=== PATIENT | female | born 1935 | race Caucasian/White ===

== ENCOUNTER 2016-12-08 15:28 | Emergency (ER) | payer OTHER ==
[~2016-12-08] VITALS: Ht 162.6 cm; Wt 63.5 kg
[2016-12-08] MEDS ORDERED: MEMA10TA PO ×2 (15:45)
[2016-12-08] MEDS ORDERED: ISOSORBIDE PO (15:45)
[2016-12-08] MEDS ORDERED: LEVO137T2 PO (15:45)
[2016-12-08] MEDS ORDERED: IBUP-1953 PO (15:45)
[2016-12-08] MEDS ORDERED: METF500T4 PO (15:45)
[2016-12-08] MEDS ORDERED: LOVA40TA2 PO (15:45)
[2016-12-08] MEDS ORDERED: METF10002 PO (15:45)
[2016-12-08] MEDS ORDERED: AMLO5TAB2 PO (15:45)
--- NOTE | 2016-12-08 16:24 | NUR ---
Pt evaluated by MD for L breast lumps; vss, nad noted; son w/ pt.
--- NOTE | 2016-12-08 16:37 | NUR ---
Patient discharged home in stable conditon. Written and verbal after care instructions given. Patient verbalizes understanding of instructions.
[2016-12-08 16:39] VITALS: BP 102/48
== END 2016-12-08 16:39 | disposition home or self-care (01) ==
LOC: ER 15:29
DX: N63 Unspecified lump in breast (principal); I10 Essential (primary) hypertension; E11.9 Type 2 diabetes mellitus without complications; E03.9 Hypothyroidism, unspecified
CPT/HCPCS: 99281; A4663

== ENCOUNTER 2017-05-20 12:26 | Emergency (ER) | payer OTHER, MEDICARE ==
[~2017-05-20] VITALS: Ht 157.5 cm; Wt 64.4 kg
[~2017-05-20 12:26] MED LIST: AMLO5TAB2 PO; IBUP-1953 PO; ISOSORBIDE PO; LEVO137T2 PO; LOVA40TA2 PO; MEMA10TA PO; METF10002 PO; METF500T4 PO
--- NOTE | 2017-05-20 13:09 | NUR ---
is at bedside doing the MSE. Patient's son is here now.
[2017-05-20 13:34] LABS: BASOPHILS % (AUTO) 0.2 % (0.0-2.0); EOSINOPHILS # (AUTO) 0.2 K/uL (0.0-0.7); HEMATOCRIT 37.4 % (37-47); HEMOGLOBIN 12.5 G/DL (12.0-16.0); LYMPHOCYTES # (AUTO) 2.2 K/UL (0.8-4.8); LYMPHOCYTES % (AUTO) 27.2 % (20.5-51.5); MEAN CORPUSCULAR HEMOGLOBIN 31.5 UUG (27.0-31.0); MEAN CORPUSCULAR HGB CONC 33 g/dL (32.0-37.0); MEAN CORPUSCULAR VOLUME 94.5 FL (81.0-99.0); MONOCYTES # (AUTO) 0.3 K/UL (0.1-1.30); MONOCYTES % (AUTO) 3.3 % (0.0-11.0); NEUTROPHILS # (AUTO) 5.4 K/UL (1.8-8.9); NEUTROPHILS % (AUTO) 67.3 % (38.5-71.5); PLATELET COUNT (AUTO) 200 K/UL (150-450); RED BLOOD CELL COUNT(AUTO) 3.96 MIL/UL (4.2-5.4); WHITE BLOOD COUNT (AUTO) 8.1 K/UL (4.0-11.2)
[2017-05-20 13:39] LABS: CARBON DIOXIDE 26 mmol/L (21-32); CHLORIDE 106 mmol/L (98-107); CREATININE 0.9 mg/dL (0.6-1.3); GLUCOSE 110 mg/dL (74-106); POTASSIUM 4.3 mmol/L (3.5-5.1); UREA NITROGEN, BLOOD 26 mg/dL (7-18)
[2017-05-20 13:46] LABS: ALANINE AMINOTRANSFERASE 19 U/L (14-59); ALKALINE PHOSPHATASE 85 U/L (50-136); ASPARTATE AMINOTRANSFERASE 17 U/L (15-37); BILIRUBIN,TOTAL 0.2 mg/dL (0.2-1.0); CREATINE KINASE, TOTAL 36 U/L (26-192); TOTAL PROTEIN, SERUM 7.1 g/dL (6.4-8.2)
--- NOTE | 2017-05-20 14:48 | NUR ---
Patient is resting comfortably in bed with eyes tracking
[2017-05-20 15:52] LABS: *BILIRUBIN,URIN NEGATIVE (NEGATIVE); *BLOOD, URINE 1+ (NEGATIVE); *CLARITY,URINE CLEAR (CLEAR); *COLOR,URINE YELLOW (YELLOW); *KETONES,URINE NEGATIVE (NEGATIVE); *PROTEIN,URINE NEGATIVE (NEGATIVE); *UROBILINOGEN,URINE 0.2 E.U./dl (NORMAL); LEUKOCYTE ESTERASE ,URINE NEGATIVE (NEGATIVE); NITRITE, URINE NEGATIVE (NEGATIVE); PH,URINE 6.5 (5.0-8.0); UGLUCOSE NEGATIVE (NEGATIVE)
--- NOTE | 2017-05-20 15:52 | NUR ---
No acute change in condition seen, pending urine test results@this time
[2017-05-20 16:05] LABS: MUCUS,URINE MODERATE /LPF (0-FEW); SQUAMOUS EPITHELIAL CELL,UR FEW /HPF (NONE SEEN); WBC,URINE 0-3 /HPF (0-3)
--- NOTE | 2017-05-20 17:03 | NUR ---
Patient discharged to home in stable conditon. Written and verbal after care instructions given to patient's adult son. Patient's son verbalizes understanding of instructions.
== END 2017-05-20 17:05 | disposition home or self-care (01) ==
LOC: ER 12:26
DX: R55 Syncope and collapse (principal); R11.2 Nausea with vomiting, unspecified; E11.9 Type 2 diabetes mellitus without complications; F03.90 Unspecified dementia, unspecified severity, without behavioral disturbance, psychotic disturbance, mood disturbance, and anxiety; I10 Essential (primary) hypertension; I70.0 Atherosclerosis of aorta; Z85.3 Personal history of malignant neoplasm of breast; E03.9 Hypothyroidism, unspecified
CPT/HCPCS: 36415; 70450; 74022; 80053; 81001; 82550; 84484; 85025; 93005; 99285; A4663; C1758; J7040; 70030-TC

== ENCOUNTER 2017-06-17 13:48 | Inpatient (IN) | END 2017-06-19 21:21 | disposition BOARD | DRG 73 | DX: G90.8 Other disorders of autonomic nervous system (principal); G93.41 Metabolic encephalopathy; J84.9 Interstitial pulmonary disease, unspecified; E11.9 Type 2 diabetes mellitus without complications; C50.919 Malignant neoplasm of unspecified site of unspecified female breast; E03.9 Hypothyroidism, unspecified; Z79.84 Long term (current) use of oral hypoglycemic drugs; G30.9 Alzheimer's disease, unspecified; F02.80 Dementia in other diseases classified elsewhere, unspecified severity, without behavioral disturbance, psychotic disturbance, mood disturbance, and anxiety; E78.5 Hyperlipidemia, unspecified; I25.10 Atherosclerotic heart disease of native coronary artery without angina pectoris; I11.9 Hypertensive heart disease without heart failure ==

== ENCOUNTER 2019-10-02 12:55 | Inpatient (IN) | payer OTHER ==
[~2019-10-02] VITALS: Ht 165.1 cm; Wt 68.2 kg
[2019-10-02 13:42] LABS: CARBON DIOXIDE 17 mmol/L (21-32); CHLORIDE 95 mmol/L (98-107); CREATININE 7.2 mg/dL (0.6-1.3); GLUCOSE 228 mg/dL (74-106)
[2019-10-02 13:43] LABS: UREA NITROGEN, BLOOD 81 mg/dL (7-18)
[2019-10-02] MEDS ORDERED: FUROSEMIDE 20 MG/2 ML VIAL IVP ONE (13:45)
[2019-10-02] MEDS ORDERED: CALCIUM GLUCONATE IV 1 GM in IV DEXTROSE 5% 50 ML IV ONE ×2 (13:45→14:00)
[2019-10-02] MEDS ORDERED: SODIUM BICARBONATE 8.4% 50 MEQ/50 ML DISP.SYRIN IV ONE ×7 (13:45→17:12)
[2019-10-02] MEDS ORDERED: IV NORMAL SALINE 500 ML BAG IV ONE ×2 (13:45→14:00)
[2019-10-02 13:48] LABS: BASOPHILS % (AUTO) 0.2 % (0.0-2.0); HEMOGLOBIN 12.7 g/dL (10.9-14.3); LYMPHOCYTES # (AUTO) 1.4 K/uL (20.0-40.0); MEAN CORPUSCULAR HEMOGLOBIN 30.4 uug (24.7-32.8); MEAN CORPUSCULAR HGB CONC 33 g/dL (32.3-35.6); MEAN CORPUSCULAR VOLUME 93.6 fL (75.5-95.3); MONOCYTES # (AUTO) 0.5 K/uL (2.0-10.0); MONOCYTES % (AUTO) 3.2 % (0.0-11.0); NEUTROPHILS % (AUTO) 88.6 % (38.5-71.5); PLATELET COUNT (AUTO) 277 K/uL (179-408); RED BLOOD CELL COUNT(AUTO) 4.16 MIL/uL (3.63-4.92)
[2019-10-02] MEDS ORDERED: FUROSEMIDE 20 MG/2 ML VIAL ONE ×2 (13:54→15:55)
[2019-10-02 13:55] LABS: ALANINE AMINOTRANSFERASE 13 U/L (14-59); ALKALINE PHOSPHATASE 123 U/L (50-136); ASPARTATE AMINOTRANSFERASE 34 U/L (15-37); BILIRUBIN,TOTAL 0.2 mg/dL (0.2-1.0); CREATINE KINASE, TOTAL 343 U/L (26-192); LACTATE DEHYDROGENASE 282 U/L (81-234); TOTAL PROTEIN, SERUM 7.9 g/dL (6.4-8.2)
[2019-10-02] MEDS ORDERED: CALCIUM GLUCONATE IV 2 GM in IV DEXTROSE 5% 250 ML IV ONE (14:00)
[2019-10-02] MEDS ORDERED: INSULIN REGULAR, HUMAN 300 UNIT/3 ML VIAL IV ONE ×2 (14:00→17:45)
[2019-10-02] MEDS ORDERED: DEXTROSE 50% 50 ML DISP.SYRIN IV ONE (14:00)
[2019-10-02] MEDS ORDERED: DEXTROSE 50% 50 ML DISP.SYRIN ONE (14:05)
[2019-10-02] MEDS ORDERED: INSULIN REGULAR, HUMAN 300 UNIT/3 ML VIAL ONE (14:06)
[2019-10-02 14:31] LABS: *CLARITY,URINE CLOUDY (CLEAR)
[2019-10-02 14:32] LABS: *BILIRUBIN,URIN NEGATIVE (NEGATIVE); *BLOOD, URINE 4+ (NEGATIVE); *COLOR,URINE LIGHT YELLOW (YELLOW); *KETONES,URINE NEGATIVE (NEGATIVE); *UROBILINOGEN,URINE 0.2 E.U./dl (NORMAL); LEUKOCYTE ESTERASE ,URINE 3+ (NEGATIVE); NITRITE, URINE NEGATIVE (NEGATIVE); UGLUCOSE NEGATIVE (NEGATIVE)
[2019-10-02 14:39] LABS: FERRITIN 236 ng/mL (8-252)
[2019-10-02 14:42] LABS: RBC,URINE TNTC /HPF (0-3); WBC,URINE TNTC /HPF (0-3)
[2019-10-02 14:43] LABS: BACTERIA,URINE MANY /HPF (NONE SEEN); SQUAMOUS EPITHELIAL CELL,UR NONE SEEN /HPF (NONE SEEN)
[2019-10-02] MEDS ORDERED: CEFTRIAXONE 2 G in IV DEXTROSE 5% 100 ML IV ONE (14:45)
[2019-10-02] MEDS ORDERED: IV NORMAL SALINE 1000 ML BAG IV ONE (14:45)
[2019-10-02] MEDS ORDERED: CEFTRIAXONE /D5W 50ML IVPB **ER PYXIS IV ONE ×2 (15:13→15:26)
[2019-10-02 15:29] LABS: CARBON DIOXIDE 15 mmol/L (21-32); CHLORIDE 97 mmol/L (98-107); CREATININE 6.8 mg/dL (0.6-1.3); UREA NITROGEN, BLOOD 78 mg/dL (7-18)
[2019-10-02 15:41] LABS: GLUCOSE 324 mg/dL (74-106); POTASSIUM 7.1 mmol/L (3.5-5.1)
[2019-10-02] MEDS ORDERED: FUROSEMIDE 20 MG/2 ML VIAL IV ONE (16:00)
[2019-10-02] MEDS ORDERED: ONDANSETRON 4 MG/2 ML VIAL IV PRN (16:15)
[2019-10-02] MEDS ORDERED: Z GUARD REMEDY PASTE 57 GM TUBE TOP PRN (16:15)
--- NOTE | 2019-10-02 16:48 | NUR ---
JUAREZ RAMIRES ON THE PHONE WITH ERMD
[2019-10-02] MEDS ORDERED: SODIUM POLYSTYRENE SULFONATE ENEMA 30 G/120 ML BOTTLE RC ONE ×2 (17:00→17:13)
[2019-10-02] MEDS ORDERED: AZITHROMYCIN 500MG/ D5W 250ML IVPB **ER PYXIS ONLY IV ONE (17:12)
[2019-10-02 17:21] LABS: ABG BASE EXCESS -10.4 mmol/L; ABG HCO3 16.3 mmol/L; ABG PCO2 38.7 mmHg (35.0-45.0); ABG PH 7.242 (7.350-7.450); ABG PO2 113.1 mmHg (75.0-100.0); ABG SITE RIGHT RADIAL; ABG TOTAL HEMOGLOBIN 12.2 G/dL (12.0-16.0); COHb 0.5 % (0.5-1.5); MetHb 0.4 % (0.0-1.5); O2Hb 97.5 % (94.0-97.0); VENT MODE Nasal Cannula
[2019-10-02] MEDS: AZITHROMYCIN IV 500 MG in IV DEXTROSE 5% 250 ML IV SCH (17:44)
[2019-10-02] MEDS ORDERED: MEMANTINE HCL 10 MG TABLET PO SCH (18:00)
--- NOTE | 2019-10-02 19:11 | NUR ---
report was rivsivan to machinist 2nd shift jason Charles.
--- NOTE | 2019-10-02 19:30 | NUR ---
Report given to CCU nurse. Vital signs stable. Room still not ready yet.
[2019-10-02] MEDS: IV NS 1000 ML 1,000 ML IV PRN (19:51)
[2019-10-02] MEDS: SODIUM BICARBONATE 8.4% 50 MEQ in IV D5 1/2 NS 1000 ML 1,000 ML IV PRN ×2 (20:10→20:57)
[2019-10-02 21:00] VITALS: BP 133/56
--- NOTE | 2019-10-02 21:00 | NUR ---
Received pt via sudeep in CCU 2 with DX: UTI with sepsis, R/O COVID. Pt awake, arousable to name, aphasic and unable to follow commands. Pt on 3L NC with O2 sats up to 97%. SR on monitor. No acute distress noted. Pt came up with Sodium bicarb at 125 cc/hr and NS at 75 cc/hr. F/C in place. Full assessment done. Wound check done. Pt turned and repositioned. Droplet/contact precautions initiated. Continue plan of care.
[2019-10-02] MEDS: CEFEPIME HCL 1 G in IV DEXTROSE 5% 50 ML IV SCH (21:21)
[2019-10-02 22:00] VITALS: BP 107/62
[2019-10-02 23:00] VITALS: BP 99/76
[2019-10-03] VITALS (17 sets, daily range): BP systolic 81–167; BP diastolic 28–113
--- NOTE | 2019-10-03 05:45 | NUR ---
Pt slept intermittently throughout the night. No acute distress noted. Pt tolerating 2L NC with O2 sats up to 96%. ST on monitor. VSS, afebrile. AM care rendered. Q2H repositioning. Heels offloaded. Continuous IVF running. Droplet/contact precautions maintained. Continue plan of care.
[2019-10-03 06:07] LABS: BASOPHILS % (AUTO) 0.2 % (0.0-2.0); HEMATOCRIT 38.3 % (31.2-41.9); HEMOGLOBIN 13.3 g/dL (10.9-14.3); LYMPHOCYTES # (AUTO) 0.8 K/uL (20.0-40.0); LYMPHOCYTES % (AUTO) 6.2 % (20.5-51.5); MEAN CORPUSCULAR HEMOGLOBIN 32.2 uug (24.7-32.8); MEAN CORPUSCULAR HGB CONC 35 g/dL (32.3-35.6); MONOCYTES # (AUTO) 0.2 K/uL (2.0-10.0); MONOCYTES % (AUTO) 1.3 % (0.0-11.0); NEUTROPHILS # (AUTO) 11.7 K/uL (1.8-8.9); NEUTROPHILS % (AUTO) 92.3 % (38.5-71.5); PLATELET COUNT (AUTO) 240 K/uL (179-408); RED BLOOD CELL COUNT(AUTO) 4.12 MIL/uL (3.63-4.92); WHITE BLOOD COUNT (AUTO) 12.7 K/uL (3.8-11.8)
[2019-10-03 06:18] LABS: ALANINE AMINOTRANSFERASE 15 U/L (14-59); ALKALINE PHOSPHATASE 158 U/L (50-136); ASPARTATE AMINOTRANSFERASE 39 U/L (15-37); BILIRUBIN,TOTAL 0.3 mg/dL (0.2-1.0); CARBON DIOXIDE 22 mmol/L (21-32); CHLORIDE 96 mmol/L (98-107); CHOLESTEROL 142 mg/dL (<200); CREATININE 6.5 mg/dL (0.6-1.3); GLUCOSE 140 mg/dL (74-106); HDL CHOLESTEROL 51 mg/dL (40-60); MAGNESIUM 1.5 mg/dL (1.8-2.4); PHOSPHOROUS 5.9 mg/dL (2.5-4.9); TOTAL PROTEIN, SERUM 7.3 g/dL (6.4-8.2); TRIGLYCERIDES 140 MG/DL (30-150)
[2019-10-03 06:22] LABS: UREA NITROGEN, BLOOD 84 mg/dL (7-18)
[2019-10-03] MEDS: SODIUM BICARBONATE 8.4% 50 MEQ in IV D5 1/2 NS 1000 ML 1,000 ML IV PRN (06:29)
[2019-10-03] MEDS: LEVOTHYROXINE SODIUM 137 MCG TABLET PO SCH (07:00)
[2019-10-03] MEDS ORDERED: SODIUM POLYSTYRENE SULFONATE ENEMA 30 G/120 ML BOTTLE RC ONE (08:30)
[2019-10-03] MEDS ORDERED: MEMANTINE HCL 10 MG TABLET PO SCH (09:00)
[2019-10-03] MEDS: MEMANTINE HCL 5 MG TABLET PO SCH ×2 (09:09→17:28)
--- NOTE | 2019-10-03 11:00 | NUR ---
DOCTOR DIAZ AND DR MARTIN IN THE UNIT TO SEE PATIENT AND EVALUATE.
--- NOTE | 2019-10-03 11:22 | NUR ---
DOCTOR YAMILA PHONED FOR UPDATE AND PLAN. WILL INITIATE LASIX 40 MG TO BUMP START KIDNEY FUNCTION. INFORMED THAT DR DIAZ WAS IN THE UNIT AND WANTS TO GIVE MORE FLUIDS. STATED THAT IS FINE. PLAN FOR REPEAT BMP AT 2PM TO MONITOR ELECTROLYTES AND WILL CALL FOR FURTHER ORDERS AT THAT TIME IF NEEDED PER RESULTS. INFORMED THAT KAYEXALATE 30GM GIVEN ALREADY ORDERED THIS MORNING.
[2019-10-03] MEDS ORDERED: FUROSEMIDE 40 MG/4 ML VIAL IV ONE (11:30)
[2019-10-03] MEDS: IV NS 1000 ML 1,000 ML IV PRN (12:20)
[2019-10-03] MEDS ORDERED: MAGNESIUM SULFATE/D5W 100 ML IV SCH (13:00)
[2019-10-03] MEDS ORDERED: CEFTRIAXONE 1 G in IV DEXTROSE 5% 50 ML IV SCH (14:00)
[2019-10-03 14:58] LABS: CARBON DIOXIDE 22 mmol/L (21-32); CHLORIDE 99 mmol/L (98-107); CREATININE 6.8 mg/dL (0.6-1.3); GLUCOSE 204 mg/dL (74-106)
[2019-10-03 15:01] LABS: POTASSIUM 6.6 mmol/L (3.5-5.1); UREA NITROGEN, BLOOD 88 mg/dL (7-18)
--- NOTE | 2019-10-03 15:24 | NUR ---
Critical lab reported to Dr. Jackson-- potassium increasing, now 6.6. Orders received, see eMAR
[2019-10-03] MEDS ORDERED: CALCIUM GLUCONATE IV 1 GM in IV NORMAL SALINE 100 ML IV ONE (15:30)
[2019-10-03] MEDS ORDERED: INSULIN REGULAR, HUMAN 300 UNIT/3 ML VIAL IV ONE (15:30)
[2019-10-03] MEDS ORDERED: DEXTROSE 50% 50 ML DISP.SYRIN IV ONE (15:30)
--- NOTE | 2019-10-03 16:00 | NUR ---
CALLED DOCTOR DRISCOLL REGARDING CRITICAL LABS THAT WERE PREVIOUSLY REPORTED TO DR DIAZ AND ORDERS WERE RECEIVED BY FLORENCIA FRIEND. DOCTOR DRISCOLL CONSIDERING DIALYSIS AND WILL SPEAK TO JOE REGARDING TREATMENT PLANS AND TO FAMILY. BOTH SON'S PHONE NUMBERS WERE GIVEN TO DR DIAZ PENDING CALL TO SONS.
--- NOTE | 2019-10-03 16:20 | NUR ---
SONS ARE IN THE HOSPITAL IN ER TO VISIT MOTHER. MADE THEM AWARE THAT UNFORTUNATELY DUE TO COVID PANDEMIC THERE IS NO VISITING AT THIS TIME AND MADE THEM AWARE THAT DOCTORS WILL BE CALLING THEM TO INFORM THEM OF NEW TREATMENT PLANS.
[2019-10-03] MEDS: AZITHROMYCIN IV 500 MG in IV DEXTROSE 5% 250 ML IV SCH (17:28)
[2019-10-03] MEDS: CEFEPIME HCL 1 G in IV DEXTROSE 5% 50 ML IV SCH (20:38)
[2019-10-03] MEDS: MUPIROCIN 2% OINT 22 GM TUBE NS SCH (20:41)
[2019-10-04 00:14] VITALS: BP 114/66
[2019-10-04 03:41] VITALS: BP_SYST 121
--- NOTE | 2019-10-04 05:28 | NUR ---
Pt rested well in between care; incontinence care done; new IV to left upper arm; needs attended; pt more alert; VSS;
[2019-10-04 06:01] LABS: BASOPHILS % (AUTO) 0.3 % (0.0-2.0); HEMATOCRIT 33.9 % (31.2-41.9); HEMOGLOBIN 11.3 g/dL (10.9-14.3); LYMPHOCYTES # (AUTO) 0.8 K/uL (20.0-40.0); LYMPHOCYTES % (AUTO) 5.4 % (20.5-51.5); MEAN CORPUSCULAR HEMOGLOBIN 30.5 uug (24.7-32.8); MEAN CORPUSCULAR HGB CONC 33 g/dL (32.3-35.6); MEAN CORPUSCULAR VOLUME 91.5 fL (75.5-95.3); MONOCYTES # (AUTO) 0.7 K/uL (2.0-10.0); MONOCYTES % (AUTO) 4.8 % (0.0-11.0); NEUTROPHILS # (AUTO) 13.8 K/uL (1.8-8.9); NEUTROPHILS % (AUTO) 89.5 % (38.5-71.5); PLATELET COUNT (AUTO) 238 K/uL (179-408); RED BLOOD CELL COUNT(AUTO) 3.71 MIL/uL (3.63-4.92); WHITE BLOOD COUNT (AUTO) 15.4 K/uL (3.8-11.8)
[2019-10-04 06:04] LABS: CARBON DIOXIDE 28 mmol/L (21-32); CHLORIDE 100 mmol/L (98-107); CREATININE 6.3 mg/dL (0.6-1.3); GLUCOSE 134 mg/dL (74-106); MAGNESIUM 1.9 mg/dL (1.8-2.4); PHOSPHOROUS 5.6 mg/dL (2.5-4.9); POTASSIUM 5.6 mmol/L (3.5-5.1)
[2019-10-04] MEDS: LEVOTHYROXINE SODIUM 137 MCG TABLET PO SCH (06:13)
[2019-10-04 06:25] LABS: UREA NITROGEN, BLOOD 85 mg/dL (7-18)
[2019-10-04] MEDS: MUPIROCIN 2% OINT 22 GM TUBE NS SCH ×2 (08:23→21:09)
[2019-10-04 08:35] VITALS: BP 129/64
--- NOTE | 2019-10-04 08:39 | NUR ---
Patient received in bed. A&OX1. Appears to be resting comfortably, no signs of pain seen. No signs of SOB/difficulty breathing. Patient is on 2L NC O2 saturation at 95%. Patient is on tele monitor, sinus rhythm. IV is at KI 22G running prescribed fluid at 75ml/hr. Pt. on isolation for MRSA of the nares, patient is NPO. Quintero catheter in place, draining clear yellow urine. safety measures in place, call light within reach, bed alarm on. Will continue to monitor.
[2019-10-04] MEDS ORDERED: SODIUM POLYSTYRENE SULFONATE 15 G/60 ML LIQUID UDC PO ONE (09:30)
[2019-10-04] MEDS ORDERED: SODIUM POLYSTYRENE SULF POWDER 15 GM UDC PO ONE (09:30)
[2019-10-04] MEDS: IV NS 1000 ML 1,000 ML IV PRN ×2 (09:45→23:37)
[2019-10-04] MEDS: MEMANTINE HCL 5 MG TABLET PO SCH ×2 (09:47→17:42)
[2019-10-04 10:03] LABS: ABG BASE EXCESS 1.2 mmol/L; ABG HCO3 25.3 mmol/L; ABG PCO2 38.1 mmHg (35.0-45.0); ABG PO2 98.1 mmHg (75.0-100.0); ABG SITE RIGHT RADIAL; ABG TOTAL HEMOGLOBIN 11.8 G/dL (12.0-16.0); COHb 0.6 % (0.5-1.5); MetHb 0.3 % (0.0-1.5); O2Hb 96.8 % (94.0-97.0); VENT MODE Nasal Cannula
[2019-10-04 12:03] VITALS: BP 109/52
[2019-10-04 17:01] VITALS: BP 110/52
--- NOTE | 2019-10-04 18:21 | NUR ---
Patient resting comfortably in bed, A&Ox1. Pt has no signs of respiratory distress/sob. Patient is on 2L NC setting at 95%. Patient diet has changed to soft diet. PT was cooperative and more alert. Incontinence care done. Needs attended. Safety measures in place, bed in lowest position. Continue with the plan of care.
[2019-10-04 20:00] VITALS: BP 150/85
--- NOTE | 2019-10-04 20:00 | NUR ---
awake, eyes open o2 3liters, repositioned for comfort.redness on the sacrum noed, mepelexv noted,
[2019-10-04] MEDS: CEFEPIME HCL 1 G in IV DEXTROSE 5% 50 ML IV SCH (20:23)
--- NOTE | 2019-10-04 20:25 | NUR ---
awake,eyes open non verbal left arm swollen,iv site on the left clavicle, repositioned no bm noted.
[2019-10-05 01:18] VITALS: BP 130/60
[2019-10-05 04:52] VITALS: BP 131/53
--- NOTE | 2019-10-05 06:29 | NUR ---
er nurse restart iv on the left foot. repositioned q 2 hours
--- NOTE | 2019-10-05 08:00 | NUR ---
received pt. resting comfortably in bed eyes open oriented to self. Pt appears in no acute distress. pt. appears in no pain/ discomfort. Pt. has new IV put in foot. by ER last night Dr. Jackson aware and wants midline okay to give fluids through IV until midline put in. Called RN elementary supervisor for midline. Pt. has pelayo catheter draining clear yellow urine. Pt. has lots of urine output. safety measures in place. bed in lowest position. call light within reach. will continue to monitor pt.
[2019-10-05 08:02] LABS: ALANINE AMINOTRANSFERASE 17 U/L (14-59); ALKALINE PHOSPHATASE 115 U/L (50-136); ASPARTATE AMINOTRANSFERASE 25 U/L (15-37); BILIRUBIN,TOTAL 0.2 mg/dL (0.2-1.0); CARBON DIOXIDE 28 mmol/L (21-32); CHLORIDE 103 mmol/L (98-107); CREATININE 4.9 mg/dL (0.6-1.3); GLUCOSE 166 mg/dL (74-106); MAGNESIUM 1.9 mg/dL (1.8-2.4); PHOSPHOROUS 5.2 mg/dL (2.5-4.9); POTASSIUM 3.8 mmol/L (3.5-5.1); TOTAL PROTEIN, SERUM 6.4 g/dL (6.4-8.2)
[2019-10-05 08:04] LABS: UREA NITROGEN, BLOOD 89 mg/dL (7-18)
[2019-10-05 08:18] LABS: BASOPHILS % (AUTO) 0.2 % (0.0-2.0); HEMOGLOBIN 11.5 g/dL (10.9-14.3); LYMPHOCYTES # (AUTO) 1.3 K/uL (20.0-40.0); LYMPHOCYTES % (AUTO) 11.4 % (20.5-51.5); MONOCYTES # (AUTO) 0.7 K/uL (2.0-10.0); NEUTROPHILS % (AUTO) 82.4 % (38.5-71.5); PLATELET COUNT (AUTO) 211 K/uL (179-408)
[2019-10-05 08:25] LABS: HEMATOCRIT 34.8 % (31.2-41.9); MEAN CORPUSCULAR HEMOGLOBIN 30.2 uug (24.7-32.8); MEAN CORPUSCULAR HGB CONC 33 g/dL (32.3-35.6); MEAN CORPUSCULAR VOLUME 91.1 fL (75.5-95.3); NEUTROPHILS # (AUTO) 9.2 K/uL (1.8-8.9); RED BLOOD CELL COUNT(AUTO) 3.82 MIL/uL (3.63-4.92)
[2019-10-05 08:27] LABS: WHITE BLOOD COUNT (AUTO) 11.1 K/uL (3.8-11.8)
[2019-10-05] MEDS: MUPIROCIN 2% OINT 22 GM TUBE NS SCH ×2 (08:59→21:13)
[2019-10-05] MEDS: LEVOTHYROXINE SODIUM 137 MCG TABLET PO SCH (09:00)
[2019-10-05] MEDS: MEMANTINE HCL 5 MG TABLET PO SCH ×2 (09:06→17:36)
[2019-10-05 12:00] VITALS: BP 146/79
[2019-10-05] MEDS: IV NS 1000 ML 1,000 ML IV PRN (13:17)
--- NOTE | 2019-10-05 16:30 | NUR ---
received report from Arminda gomez- resumed care, received awake but nonverbal- only maintains eye contact when name is called, on 3l/nc-97% sat, head of bed elevated, aspiration precautions observed.
--- NOTE | 2019-10-05 18:30 | NUR ---
first step mattress applied, no distress noted, left arm swollen- elevated on pillows, repositioned to left side with pillows for support, heels off loaded with pillows, head of bed elevated, all needs attended and met
[2019-10-05 20:00] VITALS: BP 143/60
[2019-10-05] MEDS: CEFEPIME HCL 1 G in IV DEXTROSE 5% 50 ML IV SCH (21:13)
[2019-10-06] VITALS (7 sets, daily range): BP systolic 140–214; BP diastolic 63–91
[2019-10-06] MEDS: IV NS 1000 ML 1,000 ML IV PRN ×2 (02:31→16:09)
[2019-10-06] MEDS: LEVOTHYROXINE SODIUM 137 MCG TABLET PO SCH (06:02)
--- NOTE | 2019-10-06 06:18 | NUR ---
Patient slept intermittently. Patient alert, non-verbal. Midline on KI intact and patent w/ IVF infusing. KI swollen, elevated w/ pillow. Patient turned and repositioned Q2. Oral care provided. F/C intact and draining clear yellow urine w/ sediments. Will endorse accordingly
[2019-10-06] MEDS: MUPIROCIN 2% OINT 22 GM TUBE NS SCH ×2 (08:10→20:04)
[2019-10-06] MEDS: MEMANTINE HCL 5 MG TABLET PO SCH ×2 (08:10→16:03)
[2019-10-06 11:55] LABS: CARBON DIOXIDE 27 mmol/L (21-32); CHLORIDE 107 mmol/L (98-107); CREATININE 3.4 mg/dL (0.6-1.3); GLUCOSE 246 mg/dL (74-106); POTASSIUM 3.1 mmol/L (3.5-5.1); UREA NITROGEN, BLOOD 77 mg/dL (7-18)
[2019-10-06] MEDS ORDERED: POTASSIUM CHLORIDE 20 MEQ TAB.PRT.SR PO ONE (18:15)
[2019-10-06] MEDS: CEFEPIME HCL 1 G in IV DEXTROSE 5% 50 ML IV SCH (20:05)
[2019-10-06] MEDS: ACETAMINOPHEN 325 MG TABLET PO PRN (20:33)
--- NOTE | 2019-10-06 21:30 | NUR ---
dr. lamb called for v/s: BP 214/91, HR: 136, T: 98.1, RR: 18, o2: 97 on 2L. Orders received for Clonidine 0.1 mg by mouth one time. US duplex venous upper extremity, left arm. elevate upper left arm for edema.
[2019-10-06] MEDS ORDERED: CLONIDINE HCL 0.1 MG TABLET PO ONE (21:45)
--- NOTE | 2019-10-06 22:35 | NUR ---
dr. young contacted for ultra sound on upper left extremity. can be done in the morning.
--- NOTE | 2019-10-07 05:20 | NUR ---
dr. sarita miranda contacted for BP 188/72 and HR 120.
--- NOTE | 2019-10-07 05:55 | NUR ---
dr. sarita miranda placed orders for hydralazine 25 mg, by mouth, every 4 hours PRN for SBP >160. made aware BP currently at 202/87, HR: 115
[2019-10-07] MEDS: LEVOTHYROXINE SODIUM 137 MCG TABLET PO SCH ×2 (06:14→06:15)
[2019-10-07 06:19] VITALS: BP 188/72
[2019-10-07] MEDS: hydrALAZINE HCL 25 MG TABLET PO PRN ×2 (06:24→21:57)
[2019-10-07] MEDS: IV NS 1000 ML 1,000 ML IV PRN (06:34)
[2019-10-07] MEDS: MEMANTINE HCL 5 MG TABLET PO SCH ×2 (08:13→16:12)
[2019-10-07] MEDS: MUPIROCIN 2% OINT 22 GM TUBE NS SCH ×2 (08:14→21:03)
[2019-10-07] MEDS ORDERED: METFORMIN HCL 500 MG TABLET PO SCH (08:45)
[2019-10-07 09:17] VITALS: BP 116/51
[2019-10-07 10:10] LABS: CARBON DIOXIDE 27 mmol/L (21-32); CHLORIDE 116 mmol/L (98-107); CREATININE 2.5 mg/dL (0.6-1.3); GLUCOSE 254 mg/dL (74-106); POTASSIUM 3.4 mmol/L (3.5-5.1); UREA NITROGEN, BLOOD 69 mg/dL (7-18)
[2019-10-07] MEDS ORDERED: POTASSIUM CHLORIDE 20 MEQ TAB.PRT.SR PO ONE (10:30)
[2019-10-07 12:10] VITALS: BP 146/70
[2019-10-07 16:01] VITALS: BP 155/71
[2019-10-07] MEDS ORDERED: SULFAMETH/TRIMETH 800/160 MG TABLET PO SCH ×2 (17:00)
[2019-10-07 19:30] VITALS: BP 168/93
--- NOTE | 2019-10-07 21:53 | NUR ---
infetious disease BRAND MARKETING COORDINATOR Nera, placed ordered for Keflex 250 mg by mouth every 8 hours. stop order for Keflex 250 mg suspension every 8 hours.
[2019-10-07] MEDS: ACETAMINOPHEN 325 MG TABLET PO PRN (21:57)
[2019-10-07] MEDS ORDERED: CEPHALEXIN MONOHYDRATE 250 MG/5 ML SUSPENSION 100 ML NG SCH (22:00)
[2019-10-07] MEDS ORDERED: CEphaleXIN 250 MG CAPSULE ONE (23:04)
[2019-10-07] MEDS: CEphaleXIN 250 MG CAPSULE PO SCH (23:07)
[2019-10-08 04:57] VITALS: BP 167/77
[2019-10-08] MEDS: hydrALAZINE HCL 25 MG TABLET PO PRN ×4 (04:59→20:38)
[2019-10-08] MEDS: CEphaleXIN 250 MG CAPSULE PO SCH ×3 (05:02→21:23)
[2019-10-08] MEDS: LEVOTHYROXINE SODIUM 137 MCG TABLET PO SCH (06:20)
[2019-10-08 09:08] LABS: ALANINE AMINOTRANSFERASE 61 U/L (14-59); ALKALINE PHOSPHATASE 104 U/L (50-136); ASPARTATE AMINOTRANSFERASE 68 U/L (15-37); BILIRUBIN,TOTAL 0.1 mg/dL (0.2-1.0); CARBON DIOXIDE 29 mmol/L (21-32); CHLORIDE 122 mmol/L (98-107); GLUCOSE 206 mg/dL (74-106); MAGNESIUM 1.6 mg/dL (1.8-2.4); PHOSPHOROUS 2.2 mg/dL (2.5-4.9); POTASSIUM 3.6 mmol/L (3.5-5.1); TOTAL PROTEIN, SERUM 6.4 g/dL (6.4-8.2); UREA NITROGEN, BLOOD 63 mg/dL (7-18)
[2019-10-08] MEDS: MUPIROCIN 2% OINT 22 GM TUBE NS SCH (09:17)
[2019-10-08] MEDS: MEMANTINE HCL 5 MG TABLET PO SCH ×2 (09:17→16:18)
[2019-10-08] MEDS: ACETAMINOPHEN 325 MG TABLET PO PRN (09:18)
[2019-10-08 09:27] LABS: EOSINOPHILS # (AUTO) 0.1 K/uL (0.0-0.7); EOSINOPHILS % (AUTO) 0.5 % (0.0-7.0); HEMATOCRIT 35.2 % (31.2-41.9); HEMOGLOBIN 11.6 g/dL (10.9-14.3); LYMPHOCYTES # (AUTO) 1.7 K/uL (20.0-40.0); LYMPHOCYTES % (AUTO) 15.6 % (20.5-51.5); MEAN CORPUSCULAR HEMOGLOBIN 30.3 uug (24.7-32.8); MEAN CORPUSCULAR HGB CONC 33 g/dL (32.3-35.6); MONOCYTES # (AUTO) 0.6 K/uL (2.0-10.0); MONOCYTES % (AUTO) 5.8 % (0.0-11.0); NEUTROPHILS # (AUTO) 8.5 K/uL (1.8-8.9); NEUTROPHILS % (AUTO) 78.1 % (38.5-71.5); PLATELET COUNT (AUTO) 253 K/uL (179-408); RED BLOOD CELL COUNT(AUTO) 3.83 MIL/uL (3.63-4.92); WHITE BLOOD COUNT (AUTO) 10.9 K/uL (3.8-11.8)
[2019-10-08] MEDS ORDERED: IV D5W 1000ML 1,000 ML IV ONE (10:15)
[2019-10-08 12:00] VITALS: BP 164/82
[2019-10-08 16:00] VITALS: BP 167/80
[2019-10-08] MEDS ORDERED: NEUTRA PHOS PACKET PO ONE (16:15)
--- NOTE | 2019-10-08 17:00 | NUR ---
Patient refusing all meds and food. Spitting out everything & throwing food & meds on floor. Grabbing, pinching & scratching staff.
[2019-10-08 20:10] VITALS: BP 182/80
[2019-10-08 21:30] VITALS: BP 158/80
[2019-10-09 04:08] VITALS: BP 141/63
[2019-10-09 06:11] LABS: BASOPHILS % (AUTO) 0.2 % (0.0-2.0); EOSINOPHILS # (AUTO) 0.1 K/uL (0.0-0.7); EOSINOPHILS % (AUTO) 0.7 % (0.0-7.0); HEMATOCRIT 35.4 % (31.2-41.9); HEMOGLOBIN 11.6 g/dL (10.9-14.3); LYMPHOCYTES # (AUTO) 1.8 K/uL (20.0-40.0); LYMPHOCYTES % (AUTO) 13.7 % (20.5-51.5); MEAN CORPUSCULAR HGB CONC 33 g/dL (32.3-35.6); MEAN CORPUSCULAR VOLUME 91.7 fL (75.5-95.3); MONOCYTES # (AUTO) 0.5 K/uL (2.0-10.0); MONOCYTES % (AUTO) 3.9 % (0.0-11.0); NEUTROPHILS # (AUTO) 10.5 K/uL (1.8-8.9); NEUTROPHILS % (AUTO) 81.5 % (38.5-71.5); PLATELET COUNT (AUTO) 257 K/uL (179-408); RED BLOOD CELL COUNT(AUTO) 3.86 MIL/uL (3.63-4.92); WHITE BLOOD COUNT (AUTO) 12.9 K/uL (3.8-11.8)
[2019-10-09] MEDS: LEVOTHYROXINE SODIUM 137 MCG TABLET PO SCH (06:11)
[2019-10-09] MEDS: CEphaleXIN 250 MG CAPSULE PO SCH ×2 (06:11→14:04)
--- NOTE | 2019-10-09 06:27 | NUR ---
Patient slept intermittently. Midline on KAYLA intact and patent. F/C intact and draining clear yellow urine w/ sediments. Patient compliant w/ taking meds. Turned and repositioned Q2. Will endorse accordingly
[2019-10-09 06:32] LABS: ALANINE AMINOTRANSFERASE 68 U/L (14-59); ALKALINE PHOSPHATASE 114 U/L (50-136); ASPARTATE AMINOTRANSFERASE 64 U/L (15-37); BILIRUBIN,TOTAL 0.2 mg/dL (0.2-1.0); CARBON DIOXIDE 28 mmol/L (21-32); CHLORIDE 117 mmol/L (98-107); CREATININE 1.7 mg/dL (0.6-1.3); GLUCOSE 197 mg/dL (74-106); MAGNESIUM 1.5 mg/dL (1.8-2.4); PHOSPHOROUS 2.4 mg/dL (2.5-4.9); POTASSIUM 3.6 mmol/L (3.5-5.1); TOTAL PROTEIN, SERUM 6.4 g/dL (6.4-8.2); UREA NITROGEN, BLOOD 53 mg/dL (7-18)
--- NOTE | 2019-10-09 07:30 | NUR ---
RECIEVED PT LYING IN BED WITH HOB UP AT 35DEGREES. SOUND ASLEEP AND NON-VERBAL, OPENS EYES TO SPEECH AND LIGHT TOUCH. HAS GENERALIZED WEAKNESS, TURN BASED. AFEBRILE. COLOR IS GOOD.
[2019-10-09 08:42] VITALS: BP 162/79
[2019-10-09] MEDS: MEMANTINE HCL 5 MG TABLET PO SCH (09:27)
[2019-10-09] MEDS ORDERED: NEUTRA PHOS PACKET PO ONE (09:30)
--- NOTE | 2019-10-09 10:30 | NUR ---
MAGNESIUM SULFATE 2GRMS IVPB GIVEN VIA KAYLA MIDLINE IV ACCESS FOR REPLACEMENT. PT IS ON PUREED DIET AND ATE VERY WELL WITH GOOD SWALLOW, MAX ASSIST.
[2019-10-09] MEDS: MAGNESIUM SULFATE/D5W 100 ML IV SCH ×2 (10:47→11:35)
[2019-10-09] MEDS ORDERED: CARVEDILOL 6.25 MG TABLET PO SCH (11:15)
--- NOTE | 2019-10-09 11:30 | NUR ---
PT IS ON O2 AT 2LNC AND SATURATING AT 98%. NO APPARENT DISTRESS NOTED. DC O2 AND PLACED ON ROOM AIR, STILL SATURATING AT 92-94%
[2019-10-09 12:42] VITALS: BP 151/73
--- NOTE | 2019-10-09 14:55 | NUR ---
SEND PT HOME WITH A FOLEYCATHETER. IS AWARE. HOME HEALTH FOR RN TO FOLLOW UP.
--- NOTE | 2019-10-09 15:00 | NUR ---
PT IS DISCHARGED TO [facility] VIA AMBULANCE. CONDITION IS STABLE. KAYLA MIDLINE IV ACCESS IS REMOVED. O2SAT IS 92% ON RA. VSS.
== END 2019-10-09 15:00 | DRG 871 ==
LOC: ER 12:55 → CCU 16:38 → TELE3 10-03 19:36 → MEDSURG3 10-05 11:35
PROVIDERS: ADMIT Internal Medicine; ATTEND Internal Medicine
PROC: 05HY33Z Insertion of Infusion Device into Upper Vein, Percutaneous Approach (ICD-10-PCS; principal; 2019-09-28)
PROC: 05HY33Z Insertion of Infusion Device into Upper Vein, Percutaneous Approach (ICD-10-PCS; 2019-10-08)
DX: A41.9 Sepsis, unspecified organism (principal); R65.21 Severe sepsis with septic shock; N17.0 Acute kidney failure with tubular necrosis; J96.92 Respiratory failure, unspecified with hypercapnia; G92 Toxic encephalopathy; E43 Unspecified severe protein-calorie malnutrition; N39.0 Urinary tract infection, site not specified; E87.1 Hypo-osmolality and hyponatremia; D68.69 Other thrombophilia; E87.2 Acidosis; I13.0 Hypertensive heart and chronic kidney disease with heart failure and stage 1 through stage 4 chronic kidney disease, or unspecified chronic kidney disease; R65.20 Severe sepsis without septic shock; G30.9 Alzheimer's disease, unspecified; F02.80 Dementia in other diseases classified elsewhere, unspecified severity, without behavioral disturbance, psychotic disturbance, mood disturbance, and anxiety; E03.9 Hypothyroidism, unspecified; E78.5 Hyperlipidemia, unspecified; Z79.84 Long term (current) use of oral hypoglycemic drugs; E87.5 Hyperkalemia; Z22.322 Carrier or suspected carrier of Methicillin resistant Staphylococcus aureus; Z85.3 Personal history of malignant neoplasm of breast; B96.1 Klebsiella pneumoniae [K. pneumoniae] as the cause of diseases classified elsewhere; E87.6 Hypokalemia; I25.10 Atherosclerotic heart disease of native coronary artery without angina pectoris; I07.1 Rheumatic tricuspid insufficiency; E11.22 Type 2 diabetes mellitus with diabetic chronic kidney disease; N18.9 Chronic kidney disease, unspecified; I50.9 Heart failure, unspecified; M19.90 Unspecified osteoarthritis, unspecified site
CPT/HCPCS: 36415; 36600; 70030-TC; 71045; 76770; 83605; 83615; 83735; 84100; 84443; 85025; 85730; 87040; 87077; 87086; 87400; 93005; 93307; A4663; G0378; J0456; J0610; J0692; J0696; J1815; J1940; J3475; J3490; J7030; J7060